=== PATIENT | female | born 1980 | race Caucasian/White ===

== ENCOUNTER 2019-03-18 07:56 | Emergency (ER) | payer BC ==
[~2019-03-18] VITALS: Ht 152.4 cm; Wt 81.6 kg
[2019-03-18 08:06] VITALS: BP 157/97
--- NOTE | 2019-03-18 08:06 | NUR ---
Patient ambulated to bed 5. RN evaluating patient at bedside.
--- NOTE | 2019-03-18 08:25 | NUR ---
Dr. Pinto is evaluating the patient at bedside.
--- NOTE | 2019-03-18 08:27 | NUR ---
PT PRESENTS TO ED WITH C/O UPPER ABD PAIN, N/V/D, BODY ACHES, AND CHILLS X 1 DAY. PT STATES ABD PAIN AND BODY ACHES "FEEL LIKE I WAS RAN OVER" AND RATES PAIN 10/10 AT THIS TIME. BOWEL SOUNDS ACTIVE IN ALL QUADRANTS. PT REPORTS TAKING ADVIL LAST NIGHT. SKIN IS WARM, PINK, AND DRY. PT PRESENTS WITH A CLEAR SPEECH AND IS CONVERSING APPROPRIATELY. PT REPORTS NO CP AND SOB AT THIS TIME. HCG-. VSS. PT POSITIONED FOR COMFORT, HOB ELEVATED. ER MD TO SEE PT. URIEL HX: DENIES RX: DENIES
[2019-03-18] MEDS ORDERED: KETOROLAC 30 MG/ML VIAL IVP ONE (08:30)
[2019-03-18] MEDS ORDERED: NACL 0.9% 1,000 ML IV ONE (08:30)
[2019-03-18] MEDS ORDERED: ONDANSETRON 4 MG/2 ML VIAL IVP ONE (08:30)
[2019-03-18] MEDS ORDERED: PANTOPRAZOLE 40 MG INJ VIAL IVP ONE (08:35)
[2019-03-18 08:54] LABS: HEMATOCRIT 40.8 % (36-48); HEMOGLOBIN 13.7 g/dL (12.0-16.0); MEAN CORPUSCULAR HEMOGLOBIN 29 pg (27-31); MEAN CORPUSCULAR HGB CONC 34 g/dL (33-37); MEAN CORPUSCULAR VOLUME 86.1 fL (80-94); PLATELET COUNT (AUTO) 215 K/uL (140-450); RED BLOOD CELL COUNT(AUTO) 4.74 MIL/uL (4.20-5.40); RED CELL DISTRIBUTION WIDTH 13.1 % (11.6-13.7); WHITE BLOOD COUNT (AUTO) 8.3 K/uL (4.8-10.8)
[2019-03-18 09:01] LABS: ANION GAP 13.3 (8-16); CARBON DIOXIDE 26.5 mmol/L (21-32); CREATININE 0.6 mg/dL (0.6-1.3); POTASSIUM 3.8 mmol/L (3.5-5.1)
--- NOTE | 2019-03-18 09:05 | NUR ---
PT POSITIONED FOR COMFORT, LIGHT DIMMED. WILL CONTINUE TO MONITOR.
[2019-03-18 09:07] LABS: ALBUMIN 3.7 g/dL (3.4-5.0); TOTAL BILIRUBIN 0.9 mg/dL (0.0-1.0)
--- NOTE | 2019-03-18 09:13 | NUR ---
US tech at bedside for exam.
[2019-03-18 09:14] LABS: BASOPHILS % (MANUAL) 0 % (0-2); EOSINOPHILS % (MANUAL) 0 % (0-4); LYMPHOCYTES % (MANUAL) 9 % (20-46); MONOCYTES % (MANUAL) 4 % (5-12)
--- NOTE | 2019-03-18 10:26 | NUR ---
Dr. Pinto is re-evaluating the patient at bedside.
--- NOTE | 2019-03-18 10:36 | NUR ---
Patient discharged with v/s stable. Written and verbal after care instructions given and explained. Patient alert, oriented and verbalized understanding of instructions. Ambulatory with steady gait. All questions addressed prior to discharge. ID band removed. Patient advised to follow up with PMD. Rx of PROTONIX, TRAMADOL, AND ZOFRAN given. Patient educated on indication of medication including possible reaction and side effects. Opportunity to ask questions provided and answered.
[2019-03-18 10:37] VITALS: BP 162/90
== END 2019-03-18 10:36 | disposition home or self-care (01) ==
LOC: MED 07:56
DX: A08.39 Other viral enteritis (principal); K80.20 Calculus of gallbladder without cholecystitis without obstruction; I10 Essential (primary) hypertension
CPT/HCPCS: 36415; 76705; 80053; 81002; 81025; 83690; 85025; 96361; 96374; 96375; 99284; C9113; J1885; J2405; J7030; Q0092

== ENCOUNTER 2022-02-02 08:26 | Emergency (ER) | payer BC, OTHER ==
[~2022-02-02] VITALS: Ht 172.7 cm; Wt 86.2 kg
[2022-02-02 08:35] VITALS: BP 147/75
--- NOTE | 2022-02-02 08:42 | NUR ---
PATIENT AMBULATED TO BED 5.
--- NOTE | 2022-02-02 09:15 | NUR ---
41YO FEMALE PT C/O SHARP 8 R SIDED CHEST PAIN XYESTERDAY. REPORTS SUDDEN CONSTANT ONSET W/O RADIATION . DENIES TAKING MEDICATION, N/V/D, SOB, FEVER OR CHILLS. PT AAOX4, NO VISIBLE DISTRESS, RESIRATIONS EVEN AND UNLABORED. HOB POSITIONED PER COMFORT. HX:HTN NKA
[2022-02-02 09:54] LABS: BASOPHILS % (AUTO) 0.5 % (0.0-2.0); EOSINOPHILS # (AUTO) 0.1 K/uL (0-0.4); EOSINOPHILS % (AUTO) 1.5 % (0.0-4.0); HEMATOCRIT 34.1 % (36-48); HEMOGLOBIN 11.6 g/dL (12.0-16.0); LYMPHOCYTES # (AUTO) 1.6 K/uL (2.5-16.5); LYMPHOCYTES % (AUTO) 18.7 % (20.5-51.1); MEAN CORPUSCULAR HEMOGLOBIN 28 pg (27-31); MEAN CORPUSCULAR HGB CONC 34 g/dL (33-37); MEAN CORPUSCULAR VOLUME 83.5 fL (80-94); MONOCYTES # (AUTO) 0.4 K/uL (0.8-1.0); MONOCYTES % (AUTO) 4.9 % (1.7-9.3); NEUTROPHILS # (AUTO) 6.4 K/uL (1.8-7.7); NEUTROPHILS % (AUTO) 74.4 % (42.2-75.2); PLATELET COUNT (AUTO) 206 K/uL (140-450); RED BLOOD CELL COUNT(AUTO) 4.08 MIL/uL (4.20-5.40); RED CELL DISTRIBUTION WIDTH 13.8 % (11.6-13.7); WHITE BLOOD COUNT (AUTO) 8.7 K/uL (4.8-10.8)
[2022-02-02 11:05] LABS: CARBON DIOXIDE 24.7 mmol/L (21-32); CREATININE 0.7 mg/dL (0.6-1.3); POTASSIUM 3.7 mmol/L (3.5-5.1)
[2022-02-02 14:40] VITALS: BP 134/79
--- NOTE | 2022-02-02 14:40 | NUR ---
Patient discharged with v/s stable. Written and verbal after care instructions FOR CHEST PAIN OBSERVATION given and explained. Patient verbalized understanding. Ambulatory with steady gait. All questions addressed prior to discharge. Advised to follow up with PMD.
--- NOTE | 2022-02-02 14:41 | NUR ---
The patient's care was reviewed and supervised by Irene Townsend RN.
== END 2022-02-02 14:40 | disposition home or self-care (01) ==
LOC: MED 08:26
DX: R07.89 Other chest pain (principal); I10 Essential (primary) hypertension; Z79.899 Other long term (current) drug therapy
CPT/HCPCS: 36415; 71045; 80048; 84484; 85025; 93005; 99285; Q0092